=== PATIENT | female | born 1945 | race Caucasian/White ===

== ENCOUNTER 2017-05-04 09:14 | Emergency (ER) | payer MEDICARE, BC ==
[2017-05-04 09:49] VITALS: BP 146/93
--- NOTE | 2017-05-04 10:31 | EDM.PDOC ---
ED HPI GENERAL MEDICAL PROBLEM - General Chief Complaint: Gastrointestinal Problem Stated Complaint: TROUBLE WITH BM Time Seen by Provider: 05/04/17 10:25 Source of Information: Reports: Patient, Family History Limitations: Reports: No Limitations - History of Present Illness INITIAL COMMENTS - FREE TEXT/NARRATIVE: pt had an colonoscopy that was normal 1 week ago. She has not had a bm since that time. She is having leakage from the rectum. Onset: Today Duration: Day(s): Location: Reports: Abdomen, Generalized Associated Symptoms: Reports: Other (pt had diff) - Related Data Allergies Allergy/AdvReac Type Severity Reaction Status Date / Time hydrochlorothiazide Allergy Other Verified 05/04/17 10:08 Home Meds: Home Meds Acetaminophen [Tylenol Extra Strength] 1,000 mg PO TID 05/04/17 [History] Aspirin 81 mg PO DAILY 05/04/17 [History] Biotin 1 tab PO DAILY 05/04/17 [History] Cetirizine [ZyrTEC] 10 mg PO DAILY 05/04/17 [History] Lisinopril 5 mg PO DAILY 05/04/17 [History] Omeprazole 20 mg PO DAILY 05/04/17 [History] Polyethylene Glycol 3350 [MiraLAX] 17 gm PO BEDTIME PRN 05/04/17 [History] Vit D3 & K/Berberine HCl/Hops [Ostera] 1 tab PO DAILY 05/04/17 [History] traMADol [Ultram] 50 mg PO Q6H PRN 05/04/17 [History] Past Medical History Gastrointestinal History: Reports: Chronic Constipation [employer] History: Reports: Other OB/BYN History: HYSTERECTOMY Oncologic (Cancer) History: Reports: Other (See Below) Other Oncologic History: SKIN CANCER REMOVED LEFT CHEST MANY YEARS AGO - Infectious Disease History Infectious Disease History: Reports: Chicken Pox, Measles, Mumps, Rubella Social & Family History - Family History Cardiac: Reports: CAD Neurological: Reports: CVA Oncologic: Reports: Skin - Tobacco Use Smoking Status *Q: Never Smoker - Caffeine Use Caffeine Use: Reports: Coffee Other Caffeine Use: 1CUP A DAY - Recreational Drug Use Recreational Drug Use: No ED ROS GENERAL - Review of Systems Review Of Systems: See Below Constitutional: Reports: No Symptoms, Decreased Appetite HEENT: Reports: No Symptoms Respiratory: Reports: No Symptoms Cardiovascular: Reports: No Symptoms Endocrine: Reports: No Symptoms GI/Abdominal: Reports: Abdominal Pain, Other (pt has leakage from the rectum. She has not had a bm for the last 6 days, ) ED EXAM, GI/ABD - Physical Exam Exam: See Below Text/Narrative:: pt has not had a bm for 6 days. Exam Limited By: No Limitations General Appearance: Alert, Anxious Ears: Normal TMs Throat/Mouth: Normal Inspection Head: Atraumatic Neck: Normal Inspection Respiratory/Chest: No Respiratory Distress Cardiovascular: Regular Rate, Rhythm GI/Abdominal: Soft, Non-Tender Rectal (Female) Exam: Other ( there is a large amount of stool in the rectum. ) Back Exam: Normal Inspection Extremities: Normal Inspection Neurological: Alert, Oriented, Normal Cognition Course - Vital Signs Last Recorded V/S: Last Vital Signs Temp 36.4 C 05/04/17 09:53 Pulse 78 05/04/17 09:53 Resp 16 05/04/17 09:53 BP 146/93 H 05/04/17 09:53 Pulse Ox 95 05/04/17 09:53 - Orders/Labs/Meds Orders: Active Orders 24 hr Category Date Time Status Enema [RC] ASDIRECTED Care 05/04/17 10:25 Active Labs: Laboratory Tests 05/04/17 Range/Units 11:21 Urine Color Yellow Urine Appearance Clear Urine pH 7.0 (4.5-8.0) Ur Specific [place] 1.010 (1.008-1.030) Urine Protein Negative (NEGATIVE) mg/dL Urine Glucose (UA) Normal (NEGATIVE) mg/dL Urine Ketones Negative (NEGATIVE) mg/dL Urine Occult Blood Negative (NEGATIVE) Urine Nitrite Negative (NEGATIVE) Urine Bilirubin Negative (NEGATIVE) Urine Urobilinogen Normal (NORMAL) mg/dL Ur Leukocyte Esterase Negative (NEGATIVE) Urine RBC 0-5 (0-5) Urine WBC 0-5 (0-5) Ur Epithelial Cells Not seen Amorphous Sediment Not seen Urine Bacteria Not seen Urine Mucus Not seen - Re-Assessments/Exams Free Text/Narrative Re-Assessment/Exam: 05/04/17 11:55 pt had a normal ua. She had 2 enemas with good results. he feels much better. Departure - Departure Time of Disposition: 11:56 Disposition: Home, Self-Care 01 Condition: Fair Clinical Impression: Constipation - Discharge Information Forms: ED Department Discharge Care Plan Goals: push fluids use miralax daily, rtc if problems. - My Orders Last 24 Hours: My Active Orders 05/04/17 10:25 Enema [RC] ASDIRECTED - Assessment/Plan Last 24 Hours: My Active Orders 05/04/17 10:25 Enema [RC] ASDIRECTED
== END 2017-05-04 12:03 | disposition home or self-care (01) ==
LOC: JP.ED 09:14
DX: K59.00 Constipation, unspecified (principal); Z85.828 Personal history of other malignant neoplasm of skin; Z90.710 Acquired absence of both cervix and uterus; Z79.899 Other long term (current) drug therapy; Z79.82 Long term (current) use of aspirin; Z88.8 Allergy status to other drugs, medicaments and biological substances
CPT/HCPCS: 81001; 99282; 99283